=== PATIENT | female | born 1940 | race Caucasian/White ===

== ENCOUNTER 2016-11-16 22:48 | Inpatient (IN) ==
[2016-11-16] MEDS ORDERED: Aspirin 81 MG TAB.CHEW PO ONE (23:05)
--- NOTE | 2016-11-16 23:08 | Emergency Department Note ---
Disposition Clinical Impression: Bradycardia STEMI (ST elevation myocardial infarction) Qualifiers: Involved coronary artery: unspecified coronary artery Qualified Code(s): I21.3 - ST elevation (STEMI) myocardial infarction of unspecified site Hypotension Qualifiers: Hypotension type: unspecified hypotension type Qualified Code(s): I95.9 - Hypotension, unspecified Disposition: Admitted As Inpatient Condition: Serious General Adult HPI - General Chief complaint: ED Chest Pain Stated complaint: CP, possible STEMI Time Seen by Provider: 11/16/16 22:56 Source: EMS Limitations: no limitations Nursing Notes Reviewed: Yes Vital Signs Reviewed: Yes - History of Present Illness HPI Narrative: 75-year-old female with onset of chest discomfort approximately 24 hours ago. It was initially intermittent but now is constant. It is substernal and she describes it as a pressure. She has no prior cardiac history. She reports her only medical problem is hypothyroidism for which she takes Synthroid. She denies any current dyspnea. EMS did give her nitroglycerin and reports her pain went from a 7 to a 5. EKG was transmitted which was concerning for STEMI. Pain Scale: 5 Consistency: constant Improves with: nothing Worsens with: nothing Associated symptoms: Reports: denies other symptoms Treatments Prior to Arrival: none - Related Data Allergies Allergy/AdvReac Type Severity Reaction Status Date / Time meperidine [From Demerol] Allergy Vomiting Verified 11/16/16 22:59 All systems ED: reviewed and negative except as stated. Constitutional: Denies: fever Cardiovascular: Reports: chest pain Respiratory: Denies: cough Gastrointestinal: Reports: nausea. Denies: abdominal pain Musculoskeletal: Denies: back pain Integumentary: Denies: rash Endocrine: Denies: fatigue Past Medical History - Past Medical History Medical history: Reports: thyroid disease - Social History Smoking Status: Never smoker Alcohol use: Reports: none Drug use: Reports: none Physical Exam - General Limitations: no limitations General appearance: alert, in no apparent distress - Head Head exam: atraumatic - Eye Eye exam: Present: normal appearance - ENT ENT exam: normal exam - Neck Neck exam: Present: normal inspection - Respiratory Respiratory exam: Present: normal lung sounds bilaterally. Absent: respiratory distress - Cardiovascular Cardiovascular exam: Present: regular rate, normal rhythm - Abdominal Exam Abdominal exam: Present: soft, Non-Tender - Extremities Exam Extremities exam: Present: normal inspection - Neurological Exam Neurological exam: Present: alert, oriented X3 - Skin Skin exam: Present: warm, dry Course Course Narrative: EKG was transmitted and STEMI alert was called. Repeated EKG in the emergency department verified this was a STEMI with elevation in 2, [address] depression in V1 and V2. Spoke with interventionalist who recommended labor mediator. Requested ASA, plavix, and angiomax. Labwork ordered. Waiting on labor mediator team. - Reevaluation(s) Reevaluation #1: While waiting for the [employer] team blood pressure and heart rate dropped. Blood pressure was approximately 85 systolic and heart rate dropped down to low 40s. Started immediately 2 L of normal saline and placed her in Trendelenburg. Her heart rate did improve to approximately 60 and her blood pressure came up to 120. [employer] teens arrived and will take the patient [employer]. Vital Signs Temperature 97.7 F 11/16/16 22:49 Pulse Rate 73 11/16/16 22:49 Respiratory Rate 20 11/16/16 22:49 Blood Pressure 122/71 11/16/16 22:49 O2 Sat by Pulse Oximetry 98 11/16/16 22:49 Temperature 97.7 F 11/16/16 22:49 Pulse Rate 46 11/16/16 23:17 Respiratory Rate 16 11/16/16 23:28 Blood Pressure 123/67 11/16/16 23:28 O2 Sat by Pulse Oximetry 100 11/16/16 23:17 Oxygen Delivery Oxygen Delivery Nasal Cannula Medical Decision Making - Lab Data Result diagrams: 11/16/16 22:55 11/16/16 22:55 Lab Results 11/16/16 11/16/16 11/16/16 Range/Units 22:55 22:55 22:55 WBC 8.2 (4.3-11.1) K/mcL RBC 4.51 (3.82-4.97) M/mcL Hgb 13.7 (11.5-15.4) g/dL Hct 41.0 (35.3-44.9) % MCV 90.9 (83.0-100.0) fL MCH 30.4 (28.0-33.3) pg MCHC 33.4 (31.6-35.5) g/dL RDW 13.6 (11.5-14.5) % Plt Count 253 (140-400) K/mcL MPV 9.0 L (9.4-12.4) fL Immature Gran % 0.2 (0-4) % Seg Neutrophils % 62.9 % Lymphocytes % 23.3 % Monocytes % 10.2 % Eosinophils % 2.8 % Basophils % 0.6 % Neutrophils # 5.2 (1.6-8.9) K/mcL Lymphocytes # 1.9 (0.6-4.6) K/mcL Monocytes # 0.8 (0.0-1.3) K/mcL Eosinophils # 0.2 (0.0-0.6) K/mcL Basophils # 0.1 (0.0-0.2) K/mcL PT 10.7 (9.4-12.1) Seconds INR 1.0 APTT 28.2 (26.0-36.0) Seconds Sodium 141 (136-145) mEq/L Potassium 3.6 (3.5-4.5) mEq/L Chloride 105 (98-109) mEq/L Carbon Dioxide 27 (19-29) mEq/L BUN 21 H (7-20) mg/dL Creatinine 1.19 H (0.57-1.11) mg/dL Est GFR ( Amer) 54 L (> 60) Est GFR (Non-Af Amer) 44 L (> 60) BUN/Creatinine Ratio 18 (6-26) Glucose 120 H (70-99) mg/dL POC Glucose (58-89) Calculated Osmolality 296 (280-300) Calcium 9.6 (8.6-10.8) mg/dL Magnesium 2.0 (1.6-2.6) mg/dL Troponin I (0-0.03) ng/mL 11/16/16 11/16/16 Range/Units 22:55 23:03 WBC (4.3-11.1) K/mcL RBC (3.82-4.97) M/mcL Hgb (11.5-15.4) g/dL Hct (35.3-44.9) % MCV (83.0-100.0) fL MCH (28.0-33.3) pg MCHC (31.6-35.5) g/dL RDW (11.5-14.5) % Plt Count (140-400) K/mcL MPV (9.4-12.4) fL Immature Gran % (0-4) % Seg Neutrophils % % Lymphocytes % % Monocytes % % Eosinophils % % Basophils % % Neutrophils # (1.6-8.9) K/mcL Lymphocytes # (0.6-4.6) K/mcL Monocytes # (0.0-1.3) K/mcL Eosinophils # (0.0-0.6) K/mcL Basophils # (0.0-0.2) K/mcL PT (9.4-12.1) Seconds INR APTT (26.0-36.0) Seconds Sodium (136-145) mEq/L Potassium (3.5-4.5) mEq/L Chloride (98-109) mEq/L Carbon Dioxide (19-29) mEq/L BUN (7-20) mg/dL Creatinine (0.57-1.11) mg/dL Est GFR ( Amer) (> 60) Est GFR (Non-Af Amer) (> 60) BUN/Creatinine Ratio (6-26) Glucose (70-99) mg/dL POC Glucose 120 H (58-89) Calculated Osmolality (280-300) Calcium (8.6-10.8) mg/dL Magnesium (1.6-2.6) mg/dL Troponin I 0.19 H* (0-0.03) ng/mL - EKG Data EKG #1 EKG attestation: Yes I reviewed and interpreted this EKG. EKG shows normal: sinus rhythm Rate: normal ST segment elevation in: II, III, aVF ST segment depression in: v1, v2 Interpretation: acute VA Attestation Statement - Attestation Attestation: For this encounter, I have reviewed the resident, GLASS ENG[employer], or PA documentation, treatment plan, and medical decision making; and I have had face to face time with this patient. 76-year-old female brought in by EMS with concerns of possible STEMI. Patient states that she had a pressure chest pain in the right sternum that radiated around the right arm that was associated with diaphoresis and nausea intermittently throughout the day. Transmitted ECG shows ST elevations in II, III, and F aVF with a ST depression in lead V2. EMS gave him nitroglycerin and nitro paste prior to arrival, the patient's blood pressure did remain stable. Catheter lab and the informatics spec were contacted immediately after receiving the transmitted ECG. Patient given aspirin in the emergency department as well as Plavix and Angiomax per the informatics spec. Patient's heart rate dropped below 50 at one point during her evaluation prior to transferring to [employer], patient became symptomatic with lightheadedness and her BP dropped below 90 systolic. Patient was placed in Trendelenburg position and IV fluids were started which elevated her blood pressure back above 100. Patient was transferred to the [facility] without further incident.
[2016-11-16 23:09] LABS: Basophils # 0.1 K/mcL (0.0-0.2); Basophils % 0.6 %; Eosinophils # 0.2 K/mcL (0.0-0.6); Eosinophils % 2.8 %; Hemoglobin 13.7 g/dL (11.5-15.4); Immature Granulocytes % 0.2 % (0-4); Lymphocytes # 1.9 K/mcL (0.6-4.6); Lymphocytes % 23.3 %; Mean Corpuscular HGB Conc 33.4 g/dL (31.6-35.5); Mean Corpuscular Hemoglobin 30.4 pg (28.0-33.3); Mean Corpuscular Volume 90.9 fL (83.0-100.0); Monocytes # 0.8 K/mcL (0.0-1.3); Monocytes % 10.2 %; Neutrophils # 5.2 K/mcL (1.6-8.9); Platelet Count 253 K/mcL (140-400); Red Blood Count 4.51 M/mcL (3.82-4.97); Red Cell Distribution Width 13.6 % (11.5-14.5); Segmented Neutrophils % 62.9 %
[2016-11-16] MEDS ORDERED: *HR* Midazolam HCl 2 MG/2 ML VIAL ONE (23:13)
[2016-11-16] MEDS ORDERED: Nitroglycerin 1,000 MCG/10 ML VIAL IV ONE (23:14)
[2016-11-16] MEDS ORDERED: *HR* Heparin 10,000 UNIT/10 ML VIAL ONE (23:14)
[2016-11-16] MEDS ORDERED: *HR* FentaNYL (PF) 100 MCG/2 ML VIAL ONE (23:14)
[2016-11-16] MEDS ORDERED: Heparin 1,000 UNITS/500 mL NS 500 ML ONE (23:14)
[2016-11-16] MEDS ORDERED: 0.9 % Sodium Chloride 1,000 ML ONE (23:14)
--- NOTE | 2016-11-16 23:14 | Pre-Sedation Evaluation ---
Pre-sedation evaluation - Pre-sedation checklist Date of procedure: 11/16/16 Procedure: [facility] Recent Vitals: Last Vital Signs Temp 97.7 F 11/16/16 22:49 Pulse 73 11/16/16 22:49 Resp 20 11/16/16 22:49 BP 122/71 11/16/16 22:49 Pulse Ox 98 11/16/16 23:01 H&P (including ROS) documented in medical record: Yes Previous reaction to sedatives/anesthetics: No Dietary Status: No solid food in preceding 4 hrs and no liquid in preceding 2 hrs Airway Assessment: Patient can open mouth completely, TMJ function normal Dentition: No loose teeth or bridges Possible difficult airway: No ASA Classification *see protocol: CLASS III-Severe systemic disease Plan of Care: Pt appropriate candidate for procedure/moderate/conscious sedation , Risks/benefits of procedure/sedation discussed w/ patient/family, If not NPO; Risk of intake outweiged by necessity to perform procedure
[2016-11-16] MEDS ORDERED: SODIUM CHLORIDE 0.9% IVC SCH (23:15)
[2016-11-16] MEDS ORDERED: BIVALIRUDIN IVC SCH (23:15)
[2016-11-16 23:16] LABS: Prothrombin Time 10.7 Seconds (9.4-12.1)
[2016-11-16] MEDS ORDERED: 0.9 % Sodium Chloride 2,000 ML ONE (23:17)
--- NOTE | 2016-11-16 23:17 | Cardiology History & Physical ---
Date of Encounter: 11/16/16 Time of Encounter: 23:15 Assessment and Plan (1) ST elevation (STEMI) myocardial infarction involving right coronary artery Current Visit: Yes Status: Acute Patient presented with chest pain and EKG showed some ST elevations in inferior the leads. She is in the lab for Catheterization and possible primary intervention. Risks benefits and alternatives palpation all questions answered she agrees to proceed. We will institute routine post-OH care including aspirin and beta blockers Josh inhibitors and statin. We will check an echocardiogram. She will be referred for cardiac rehabilitation. The assessment and plan as outlined above was discussed with the patient and/or family members who expressed understanding and agreement. All questions were answered. History of Present Illness Chief complaint: Chest pain HPI: Ms. Westbrook is a 75 year old female with no prior cardiac history, history of hypothyroidism who presents with chest pain that started 24 hours ago. The chest pain is substernal. Initially intermittent. Now persistent. EKG showed ST elevations in the inferior precordial leads. She received aspirin Plavix and she is in the catheter lab for angiography and possible primary intervention. She denies history of smoking Past Med Surg Social Fam HX - Past Medical History Medical history: thyroid disease - Past Surgical History Surgical History: no surgical history - Social History Smoking Status: Never smoker Alcohol use: none Drug use: none Medications and Allergies Allergies meperidine [From Demerol] Allergy (Verified 11/16/16 22:59) Vomiting All Systems Review: A 10-system review of systems was performed and is negative for pertinent findings except as documented above in the HPI. Physical Examination Vital Signs, Last 4 Hours Temp Pulse Resp BP Pulse Ox 11/16/16 23:01 98 11/16/16 22:49 97.7 F 73 20 122/71 98 General: Conversant, No Apparent Distress HEENT: Atraumatic, Normocephaly, Mucus Membranes Moist Neck: No JVD, Normal carotid pulses Cardiac: Reg Rate and Rhythm, Normal S1 and S2, No Murmur Lungs: Normal Breath Sounds, No Wheeze, Rales, Rhonchi Neuro: Alert and responsive, No focal deficits noted Abdomen: Soft, Non-Tender Skin: No rashes noted on visualized skin Musculoskeletal: No Chest Wall Tenderness Extremities: No Clubbing, No Cyanosis, No Edema, Normal Pulses Results 11/16/16 22:55 11/16/16 22:55 Lab Results 11/16/16 22:55 WBC 8.2 Hgb 13.7 Hct 41.0 Plt Count 253 - EKG Interpretation EKG results cardiology: personally reviewed (Normal sinus rhythm and ST elevations in 2-[address] depressions in V1 and V2 and elevation in V5 V6 suggestive of acute inferoposterolateral myocardial infarction)
[2016-11-16 23:18] LABS: Activated Partial Thrombo Time 28.2 Seconds (26.0-36.0)
[2016-11-16 23:23] LABS: Calcium 9.6 mg/dL (8.6-10.8); Potassium 3.6 mEq/L (3.5-4.5)
[2016-11-16] MEDS ORDERED: Ondansetron 4 MG/2 ML VIAL ONE (23:38)
[2016-11-16] MEDS ORDERED: Furosemide 40 MG/4 ML VIAL ONE (23:52)
[2016-11-17] MEDS ORDERED: 0.9 % Sodium Chloride 1,000 ML IVC SCH ×2 (00:15→12:44)
[2016-11-17] MEDS ORDERED: *HR* Atropine Sulfate 1 MG/10 ML SYRINGE ONE (00:22)
[2016-11-17 04:08] LABS: Basophils % 0.4 %; Eosinophils % 0.4 %; Hematocrit 41.6 % (35.3-44.9); Hemoglobin 13.9 g/dL (11.5-15.4); Immature Granulocytes % 0.2 % (0-4); Lymphocytes % 11.5 %; Mean Corpuscular HGB Conc 33.4 g/dL (31.6-35.5); Mean Corpuscular Hemoglobin 30.3 pg (28.0-33.3); Mean Corpuscular Volume 90.8 fL (83.0-100.0); Mean Platelet Volume 9.3 fL (9.4-12.4); Monocytes # 0.6 K/mcL (0.0-1.3); Monocytes % 6.8 %; Neutrophils # 6.9 K/mcL (1.6-8.9); Platelet Count 260 K/mcL (140-400); Red Blood Count 4.58 M/mcL (3.82-4.97); Red Cell Distribution Width 13.7 % (11.5-14.5); Segmented Neutrophils % 80.7 %
[2016-11-17 04:19] LABS: BUN/Creatinine Ratio 19 (6-26); Blood Urea Nitrogen 19 mg/dL (7-20); Carbon Dioxide 26 mEq/L (19-29); Chloride 102 mEq/L (98-109); Glucose 114 mg/dL (70-99); Osmolality,Calculated 291 (280-300); Potassium 4.1 mEq/L (3.5-4.5); Sodium 139 mEq/L (136-145); eGFR For African Americans > 60 (> 60); eGFR For Non-African Americans 54 (> 60)
[2016-11-17] MEDS ORDERED: Aspirin 81 MG TAB.CHEW PO SCH (09:00)
--- NOTE | 2016-11-17 09:13 | Cardiology Progress Note ---
Date of Encounter: 11/17/16 Time of Encounter: 09:11 Assessment and Plan (1) Bradycardia Current Visit: Yes Status: Acute Resolved - probably related to RCA stenosis (2) Hypotension Current Visit: Yes Status: Acute Resolved - also probably related to RCA stenosis and associated hemodynamic compromise Qualifiers: Hypotension type: unspecified hypotension type Qualified Code(s): I95.9 - Hypotension, unspecified (3) STEMI (ST elevation myocardial infarction) Current Visit: Yes Status: Acute S/p RCA PCI. Staged proceure to LCX. Usual CAD meds, STEMI care Qualifiers: Involved coronary artery: right coronary artery Qualified Code(s): I21.11 - ST elevation (STEMI) myocardial infarction involving right coronary artery Discussion w patient/family: The assessment and plan as outlined above was discussed with the patient and/or family members who expressed understanding and agreement. All questions were answered. Thank you for involving us in the care of your patient. Please call with any questions. Subjective Principal diagnosis: CAD Interval history: Patient denies any chest pain this morning. Denies any new sxs and is feeling much better than last night. Objective Vital Signs, Last 4 Hours Temp Pulse Resp BP Pulse Ox 11/17/16 07:56 98.0 F 11/17/16 07:54 70 13 143/63 95 11/17/16 06:00 66 13 128/58 95 11/17/16 05:15 71 13 128/56 95 General: Conversant, No Apparent Distress HEENT: Atraumatic, Normocephaly Neck: No JVD, Normal carotid pulses Cardiac: Reg Rate and Rhythm, Normal S1 and S2 Lungs: Normal Breath Sounds, No Wheeze, Rales, Rhonchi Neuro: Alert and responsive, No focal deficits noted Abdomen: Soft, Non-Tender Skin: No rashes noted on visualized skin Musculoskeletal: No Chest Wall Tenderness Extremities: No Clubbing, No Edema Results 11/17/16 03:53 11/17/16 03:53 Lab Results 11/17/16 11/17/16 03:53 03:53 WBC 8.6 Hgb 13.9 Hct 41.6 Plt Count 260 Sodium 139 Potassium 4.1 Chloride 102 Carbon Dioxide 26 BUN 19 Creatinine 1.00 Glucose 114 H Calcium 10.0 - Imaging and Cardiology Chest Xray: report reviewed Cardiac cath: image reviewed (Severe RCA stenosis - Stent placed Severe LCX stenosis - not yet treated Moderate LAD territory disease - med Rx, additional imgaing when LCX is treated.) - EKG Interpretation EKG results cardiology: personally reviewed, normal ECG, no diagnostic ischemia (ST changes in the inferolateral leads resolved overnight. AM EKG - normal STs ) - VTE Reasons for not Prescribing Prophylaxis: Not indicated-Anticoagulated or INR therapeutic Consult Discharge Plan - Plan Referrals: NO,PCP [Primary Care Provider] -
[2016-11-17] MEDS ORDERED: *HR* Midazolam HCl 2 MG/2 ML VIAL ONE (09:45)
[2016-11-17] MEDS ORDERED: *HR* FentaNYL (PF) 100 MCG/2 ML VIAL ONE (09:45)
[2016-11-17] MEDS ORDERED: *HR* Heparin 10,000 UNIT/10 ML VIAL ONE (09:45)
[2016-11-17] MEDS ORDERED: Heparin 1,000 UNITS/500 mL NS 500 ML ONE (09:45)
[2016-11-17] MEDS ORDERED: 0.9 % Sodium Chloride 1,000 ML ONE ×2 (09:45→10:33)
[2016-11-17] MEDS ORDERED: Nitroglycerin 1,000 MCG/10 ML VIAL IV ONE (09:46)
--- NOTE | 2016-11-17 10:28 | Pre-Sedation Evaluation ---
Pre-sedation evaluation - Pre-sedation checklist Date of procedure: 11/17/16 Procedure: cath Recent Vitals: Last Vital Signs Temp 98.0 F 11/17/16 07:56 Pulse 61 11/17/16 09:00 Resp 13 11/17/16 09:00 BP 150/79 11/17/16 09:00 Pulse Ox 95 11/17/16 09:00 H&P (including ROS) documented in medical record: Yes Previous reaction to sedatives/anesthetics: No Dietary Status: NPO 6 hours prior to procedure Dentition: No loose teeth or bridges Possible difficult airway: No ASA Classification *see protocol: CLASS II-Mild systemic disease Plan of Care: Pt appropriate candidate for procedure/moderate/conscious sedation , Risks/benefits of procedure/sedation discussed w/ patient/family, If not NPO; Risk of intake outweiged by necessity to perform procedure
[2016-11-17] MEDS ORDERED: *HR* Bivalirudin 250 MG VIAL IVC ONE (10:33)
--- NOTE | 2016-11-17 11:03 | Invasive Diagnostic Lab ---
Name: Niecy Westbrook Date of Study: 11/16/2016 Date: 1940 Ht: 168.0 cm /66.1 in Medical Record#: [id number] Age: 75 Wt: 77. kg / 169.76 lb Account/Order#: [id number] Gender: Female BSA: 1.87 Order #: [id number] Fluoro Dose: 467 mGy BMI: 27.28 Procedure Physician: Magdaleno Manuel MD Referring MD: Referring MD: Procedures Performed: PCI of Acute OH LEFT HEART CATH Indications: STEMI Impressions: There is severe one vessel coronary artery disease. The left ventricle is normal and has normal contractility EF 50% Patient had successful PTCA/Drug-Eluting Stent placement in the Proximal RCA. Patient will return to lab tomorrow for Mid Circ stent Recommendations: Optimal medical therapy of patient's disease. Aggressive risk factor modification. Patient being referred for cardiac rehab. Patient recommended to retrun to cathlab tomorrow for PCI of Mid Circ. History/Risk Factors: Thyroid Procedure Access obtained in the right Femoral artery by percutaneous puncture Access obtained in the right Femoral vein. Patient had successful PTCA/Drug-Eluting Stent placement in the proximal RCA. Complications: None Contrast: Isovue 146ml Closure Device: Perclose ProGlide, venous sheath in place Hemodynamics: Pressures Site Systolic/ A Wave Diastolic/ V Wave End Diastolic/ Mean HR AO 139 82 108 83 LV 130 0 16 88 LV 112 41 46 89 AO 113 39 80 87 LV Ventriculography Ejection Method: LV Gram Ejection Fraction: 50% Wall Motion: NIETO Anterobasal Normal Anterolateral Normal Apical: Normal Inferoapical Severe Hypokinesis Inferobasal Severe Hypokinesis Coronary Dominance: right Lesion Findings/Interventions * Left Main Coronary Artery The LMCA is angiographically free of disease. * Left Anterior Descending There is a 40% stenosis in the Proximal LAD. There is a 20% stenosis in the Mid LAD. There is a 60% stenosis in the 1st Diagonal. * Circumflex There is a 95% stenosis in the Mid Circumflex. * Ramus The Ramus is angiographically free of disease. * Right Coronary Artery There is a 12 mm long, 99% stenosis in the Proximal RCA. The lesion has a DOUGLAS flow of 3. An intervention was performed on the Proximal RCA with a final stenosis of 0%. There were no lesion complications. The final DOUGLAS flow was 3. There is a 30% stenosis in the Mid RCA. There is a 30% stenosis in the Distal RCA. Interventional Device(s) Vessel Segment Type Name Diameter (mm) Length (mm) Proximal RCA Balloon Mini-Trek Rx 2 8 Proximal RCA Drug Eluting Stent Synergy 3 12 Updated by Mag Mireles RN on 11/17/2016 12:46:23 AM Magdaleno Manuel MD electronically signed on 11/17/2016 10:57:59 AM with status of Final
--- NOTE | 2016-11-17 11:10 | Invasive Diagnostic Lab ---
Name: Niecy Westbrook Date of Study: 11/17/2016 Date: 1940 Ht: 168.0 cm /66.1 in Medical Record#: [id number] Age: 76 Wt: 77. kg / 169.76 lb Account/Order#: [id number] Gender: Female BSA: 1.87 Order #: [id number] Fluoro Dose: 882 mGy BMI: 27.28 Procedure Physician: Magdaleno Manuel MD Referring MD: Referring MD: Procedures Performed: Stent w/ PTCA Single Major Vessel Indications: Coronary Artery Disease, STagged PCI Impressions: There is severe one vessel coronary artery disease. Patient had successful PTCA/Drug-Eluting Stent placement in the mid Circ. Recommendations: Optimal medical therapy of patient's disease. Aggressive risk factor modification. History/Risk Factors: thyroid RCA stent Previous PCI Procedure Access obtained in the left Femoral artery by percutaneous puncture Patient had successful PTCA/Drug-Eluting Stent placement in the mid Circ. Complications: None, None Contrast: Isovue 77ml Closure Device: Perclose ProGlide Hemodynamics: Pressures Site Systolic/ A Wave Diastolic/ V Wave End Diastolic/ Mean HR AO 101 47 68 64 AO 124 62 87 68 Coronary Dominance: right Lesion Findings/Interventions * Circumflex There is a 20 mm long, 95% stenosis in the Mid Circumflex. An intervention was performed on the Mid Circumflex with a final stenosis of 0%. There were no lesion complications. See Previous cath from 11/16/2016. Interventional Device(s) Vessel Segment Type Name Diameter (mm) Length (mm) Mid Circumflex balloon Emerge Monorail 2 Mid Circumflex bioabsorbable stent Synergy 2.5 20 Mid Circumflex balloon NC Emerge 2.75 15 Updated by Guerline Hillman RN on 11/17/2016 11:06:21 AM Magdaleno Manuel MD electronically signed on 11/17/2016 11:07:12 AM with status of Final
--- NOTE | 2016-11-17 11:17 | Invasive Diagnostic Lab Proc ---
Name: Niecy Westbrook Date of Study: 11/17/2016 Date: 1940 Ht: 66.1in Medical Record#: [id number] Age: 76 Wt: 169.76lb Gender: Female BSA: 1.87 Order #: [id number] BMI: 27.28 Physicians Procedure Physician: Magdaleno Manuel MD Referring MD: Referring MD: Staff Name Position Time In Saida Arias RT Monitor 10:24 AM Bowen Kyara RT (R) Scrub 10:24 AM Guerline Dominguez RN Monitor 10:25 AM Indications Indication Coronary Artery Disease STagged PCI Procedures Performed Procedure PRQ CARD LENIN STENT W/ANGIO 1 VSL Pre-Procedure Checklist Informed consent is complete signed and on chart. H\\T\\P is on chart. ID band is on and ID verified with patient. Patient NPO for procedure The procedure was described for the patient and questions were answered. Blood Pressure: 144/65 ECG is on chart. Rhythm: NSR Plan of Care Patient will tolerate the procedure without complications. Adequate level of comfort will be maintained. Hemodynamics will remain stable Patient will recover from procedure without complications. Respiratory function will be maintained. Cardiac rhythm will remain stable. Patient temperature will be maintained. Patient and/or family have verbalized understanding of the procedure. Patient Education Chief Complaint/Reason for Test: Cardiac Cath Developmental Category: Geriatric (65+ years) Developmentally Appropriate for Age: Yes Learning Barriers: None Education Needs: Procedure Education Method: Verbal Information Taught: Cardiac Cath Educational Evaluation: Able to repeat information Intravenous Access Time IV Size Location DC'd Fluid/Drip Rate Units RN 10:03 AM 20g 1 1/4" Patent On Arrival Lt Hand 0.9NaCl 75 ml/hr Guerline Dominguez RN 10:03 AM 18g 1 1/4" Patent On Arrival Rt Antecubital Allergies meperidine Vital Signs Time BP (mmHg) HR (bpm) O2 Sat. RR (bpm) LOC 10:27 AM / % 5 = Fully awake and oriented or at pre-proc level 10:27 AM / % 4 = Oriented but drowsy 10:30 AM 144 / 65 63 98 % 18 10:35 AM 133 / 64 67 96 % 14 10:40 AM 121 / 65 64 93 % 8 10:45 AM 133 / 69 64 94 % 11 10:50 AM 125 / 56 67 94 % 16 Procedural Medications Time Medication Dose Units Method Given By 10:26 AM Oxygen 2 L/min nasal cannula Guerline Dominguez RN 10:26 AM Versed 1 mg Intravenous Guerline Dominguez RN 10:26 AM Fentanyl 50 mcg Intravenous Guerline Dominguez RN 10:32 AM Lidocaine 2% 18 ml Subcutaneous Magdaleno Manuel MD 10:36 AM Nitroglycerin 200 mcg Intracoronary Magdaleno Manuel MD 10:36 AM Angiomax 0.75mg/kg bolus: 11 mg Intravenous Guerline Dominguez RN 10:39 AM Angiomax 1.75mg/kg/hr: 26 ml Intravenous Guerline Dominguez RN 10:46 AM Nitroglycerin 200 mcg Intracoronary Magdaleno Manuel MD ASA Classification: CLASS II- Mild systemic disease (i.e. well-controlled diabetes, hypertension, asthma, cigarette smoking) Pearl Score Preprocedure Postprocedure Activity 2- Moves 4 extremities sustained head lift Activity 2- Moves 4 extremities sustained head lift Circulation 2- SBP +/= 20 points of pre-anesthetic level Circulation 2- SBP +/= 20 points of pre-anesthetic level Consciousness 2- Awake and alert oriented x 3 Consciousness 2- Awake and alert oriented x 3 O2 Saturation 2- Able to maintain O2 satruation of 92% on room air O2 Saturation 2- Able to maintain O2 satruation of 92% on room air Respiratory 2- Able to deep breathe and cough well Respiratory 2- Able to deep breathe and cough well Total Score 10 Total Score 10 Contrast Agent: Isovue Diagnostic Contrast: 77 ml Total Contrast: 77 ml Fluoro Dose: 882 mGy Procedure Log Time Note Enter By 10:16 AM Pt arrived to medical laboratory technical officer 2 at 10:16 scoates 10:24 AM Saida Arias RT Position: Monitor Time in: 10:24 scoates 10:25 AM Kyara Wiseman RT (R) Position: Scrub Time in: 10:24 scoates 10:25 AM Guerline Dominguez RN Position: Monitor Time in: 10:25 scoates 10:25 AM Patient charges- Angio tray pack, Navilyst 3mm J, Pulse Oximetry and ACIST tubing and transducer scoates 10:25 AM IV Supplies used: J loop Angio Cath. scoates 10:25 AM Case Delayed No scoates 10: AM Hair removed from procedure site in procedure lab using clippers. Bilateral groin prepped with Chloraprep by Saida Arias then patient draped. Skin intact. scoates 10: AM Physician arrived 10: scoates 10: AM ASA Class CLASS II- Mild systemic disease (i.e. well-controlled diabetes, hypertension, asthma, cigarette smoking) scoates 10: AM Meet and greet completed scoates : AM Sign in performed according to hospital policy. scoates 10: AM Procedure start : scoates : AM Time: Oxygen on at 2 L/min per nasal cannula by Guerline Dominguez RN scoates AM Time: Versed 1 mg Intravenous Given by Guerline Dominguez RN scoates AM Time: Fentanyl 50 mcg Intravenous Given by Guerline Dominguez RN scoates AM Time: Patient comfortable and pain free: Yes scoates : AM Time: LOC: 5 = Fully awake and oriented or at pre-proc level scoates 10: AM CathStat : AM Vitals capture started with the following parameters, Patient=Adult, Interval=5 min, Initial Ptvapref=381 mmHg, Deflation Rate=5 mmHg, Cuff placed on Left Leg 10:30 AM HR=63 bpm, AHRX=709/65 mmhg, SpO2=98.0 %, Resp=18 B/min, Comment=sr 10: AM Time out performed according to hospital policy scoates : AM Time: 18 ml Lidocaine 2% to left groin Subcutaneous Given by Magdaleno Manuel MD scoates 10:33 AM Access obtained by percutaneous puncture. 6Fr 10cm Terumo [place] sheath placed in left Femoral artery. [id number] scoates 10:34 AM Pressure channel 1 zeroed. 10:35 AM 6Fr XB3.5 Mobile Bright-Tip guide catheter was used to cannulate the PCI vessel successfully. reused? No scoates 10:35 AM wire removed scoates 10:35 AM HR=67 bpm, YVBY=782/64 mmhg, SpO2=96.0 %, Resp=14 B/min, Comment=sr 10:35 AM Inflation device was opened. scoates 10:36 AM Time: 10:36 Nitroglycerin 200 mcg Intracoronary Given by Magdaleno Manuel MD scoates 10:36 AM Recorded Pressure: Ao, HR=64, Condition=Condition 1 (Aorta) Ao 101/47/68 10:37 AM Time: 10:36 Angiomax 0.75mg/kg bolus: 11 ml Intravenous Given by Guerline Dominguez RN Moore pump scoates 10:39 AM Time: 10:39 Angiomax 1.75mg/kg/hr: 26 ml Intravenous Given by Guerline Dominguez RN Moore pump scoates 10:40 AM HR=64 bpm, ITFP=354/65 mmhg, SpO2=93.0 %, Resp=8 B/min 10:40 AM .014 Prowater 180cm guide wire across target lesion- successful. reused? No scoates 10:42 AM 2.0 mm x mm Emerge Monorail balloon across target lesion- successful. reused? No scoates 10:42 AM Time: 10:27 Patient comfortable and pain free: Yes scoates 10:43 AM Time: 10:27LOC: 4 = Oriented but drowsy scoates 10:43 AM Balloon inflated @ 8 roque for 12 seconds scoates 10:43 AM Balloon catheter removed intact. scoates 10:44 AM 2.5mm x 20mm Synergy bioabsorbable stent across target lesion- successful Lot #[id number] scoates 10:45 AM HR=64 bpm, OAAJ=362/69 mmhg, SpO2=94.0 %, Resp=11 B/min 10:45 AM Stent deployed @ 18 roque for 7 seconds scoates 10:46 AM Time: 10:46 Nitroglycerin 200 mcg Intracoronary Given by Magdaleno Manuel MD scoates 10:47 AM 2.75 mm x 15mm NC Emerge balloon across target lesion- successful. reused? No scoates 10:48 AM Balloon inflated @ 16 roque for 6 seconds scoates 10:48 AM balloon and wire removed scoates 10:48 AM Recorded Pressure: Ao, HR=68, Condition=Condition 1 (Aorta) Ao 124/62/87 10:49 AM Bolus angiogram of left Femoral complete: 4 ml/sec for a total of 7 mls scoates 10:49 AM catheter removed scoates 10:50 AM HR=67 bpm, XFRR=525/56 mmhg, SpO2=94.0 %, Resp=16 B/min 10:50 AM Procedure completed at 10:50 scoates 10:52 AM Sign out completed: Radiation Dose 882 mGy Fluoro Time: 6.6 Isovue 370 - 200ml contrast 77 ml given by Magdaleno Manuel MD. Complications: NoneCardiac Rehab Consult needed: YesConfirmed administered medications: Yes scoates 10:52 AM Isovue 370 - 200ml,1 Bottle(s) used. scoates 10:52 AM Arterial sheath pulled, Perclose closure device used and was Successful [id number] S/N. scoates 10:52 AM Post ECG NSR scoates 10:52 AM Post Blood Pressure 125/56 scoates 10:53 AM Information taught PCI and Perlose scoates 10:53 AM Education needs Procedure, Plan of Care, and Responsibilities of Patient in Care scoates 10:53 AM Learning barriers :None scoates 10:53 AM Education Methods Verbal scoates 10:53 AM Education evaluation Able to repeat information scoates 10:53 AM Site status No bleeding/hematoma - Lt Groin as reported by Kyara Wiseman RT (R) at 10:53 scoates 10:53 AM Opsite applied scoates 10:54 AM Plavix, Effient or Brilinta given No Plavis 75mg given in ICU at 940 scoates 10:54 AM Delay to floor No scoates 10:54 AM Patient out of room: 10:54 scoates 10:54 AM Family placed in consult room. scoates 10:56 AM Complications: None scoates 10:56 AM Fluoro Time: 6.6 scoates 10:56 AM Isovue 370 - 200ml contrast 77 ml given by Magdaleno Manuel MD. scoates 10:56 AM Radiation Dose 882.09 mGy scoates 11:01 AM Coronary Dominance: right scoates 11:01 AM Lesion found in Mid Circumflex. Pre Stenosis: 95 Pre DOUGLAS Flow: scoates 11:01 AM Circumflex, Obtuse Marginal, Left Posterior Descending, and Left Posterolateral Coronary Arteries with 95 % stenosis. If graft is supplying this area, % stenosis scoates 11:01 AM 11:01 Post Pulses Lt DP PT 1+ scoates 11:01 AM 11:01 Post Pulses Rt DP PT 2+ scoates 11:10 AM Report given to [place] JACOBS Pt taken to ICU Room #11. 11:10 scoates Complications Complication None None Hemodynamics Pressures Site Systolic/A Wave Diastolic/V Wave Mean AO 101 47 68 AO 124 62 87 Post Procedure Information Blood Pressure: 125/56 mmHg Rhythm: NSR Post procedural instructions were given Closure Device Time Device Success/Fail 11/17/2016 11:00:00 AM Perclose ProGlide Successful Site Checks Time Location Status Staff Sheath In? Note 10:53 AM Lt Groin No bleeding/hematoma Salbador Wiseman RT (R) Pulses Time Site Pre-Procedure Post-Procedure Note 11:01:00 AM Lt DP PT 1+ 11:01:00 AM Rt DP PT 2+ Updated by Guerline Hillman RN on 11/17/2016 11:10:48 AM electronically signed on 11/17/2016 11:12:07 AM with status of Final
--- NOTE | 2016-11-17 14:45 | Electrocardiograph Report ---
[address] [place] [address] Test Date: 2016-11-16 Pat Name: Niecy Westbrook Department: 103 Room: 11 Gender: F Hydrological Technical Officer: : 1940 Requested By: Thony Dixon Order Number: [id number] Reading MD: Courtney Gary Measurements Intervals [place] Rate: 57 P: 30 SD: 151 QRS: 2 QRSD: 89 T: 115 QT: 397 QTc: 391 Interpretive Statements SINUS BRADYCARDIA INFERIOR POSTERIOR ACUTE MYOCARDIAL INFARCTION RECIPROCAL HIGH LATERAL DEPRESSIONS Electronically Signed On 11-17-2016 14:43:41 EST by Courtney Gary
--- NOTE | 2016-11-17 14:47 | Electrocardiograph Report ---
[address] [place] [address] Test Date: 2016-11-17 Pat Name: Niecy Westbrook Department: 109 Room: 11 Gender: F Senior Consumer Insights Consultant: : 1940 Requested By: Magdaleno Manuel Order Number: [id number] Reading MD: Courtney Gary Measurements Intervals [place] Rate: 78 P: 59 [place]: 158 QRS: 12 QRSD: 89 T: 81 QT: 359 QTc: 393 Interpretive Statements SINUS RHYTHM NONSPECIFIC T-WAVE ABNORMALITY Electronically Signed On 11-17-2016 14:45:56 EST by Courtney Gary
--- NOTE | 2016-11-17 14:47 | Electrocardiograph Report ---
[address] [place], [place] [address] Test Date: 2016-11-16 Pat Name: Niecy Westbrook Department: 103 Room: 11 Gender: F Machine Shorthand Reporter: : 1940 Requested By: Order Number: [id number] Reading MD: Courtney Gary Measurements Intervals [place] Rate: 45 P: 10 HI: 148 QRS: 16 QRSD: 89 T: 104 QT: 463 QTc: 419 Interpretive Statements SINUS BRADYCARDIA WITH SINUS ARRHYTHMIA ST ELEVATION INFERIOR-POSTERIOR, CONSIDER ACUTE NH Electronically Signed On 11-17-2016 14:45:14 EST by Courtney Gary
[2016-11-18 07:35] VITALS: BP 118/58
[2016-11-18] MEDS ORDERED: Aspirin 81 MG TAB.CHEW PO SCH (09:00)
[2016-11-18 09:39] LABS: Basophils % 0.5 %; Eosinophils # 0.2 K/mcL (0.0-0.6); Eosinophils % 2.8 %; Hematocrit 40.7 % (35.3-44.9); Hemoglobin 13.2 g/dL (11.5-15.4); Immature Granulocytes % 0.4 % (0-4); Lymphocytes # 1.3 K/mcL (0.6-4.6); Lymphocytes % 16.2 %; Mean Corpuscular HGB Conc 32.4 g/dL (31.6-35.5); Mean Corpuscular Hemoglobin 30.1 pg (28.0-33.3); Mean Corpuscular Volume 92.9 fL (83.0-100.0); Mean Platelet Volume 9.5 fL (9.4-12.4); Monocytes # 0.6 K/mcL (0.0-1.3); Monocytes % 6.9 %; Platelet Count 238 K/mcL (140-400); Red Blood Count 4.38 M/mcL (3.82-4.97); Red Cell Distribution Width 14.1 % (11.5-14.5); Segmented Neutrophils % 73.2 %
--- NOTE | 2016-11-18 09:43 | ECHO - Doppler Report ---
Echocardiogram Name: Niecy Westbrook Date of Study: 11/17/2016 Date: 1940 Ht: 66.0 in Medical Record#: [id number] Age: 76 Wt: 170.0 lb Gender: Female BSA: 1.87 Order #: [id number] Location: [facility] Room #: 11 Reading Physician: Anish Babcock DO, TJ, GERONIMO GANNON Recreation Program Coordinator: Aspen Benavidez Ordering Physician: Magdaleno Manuel MD Primary Physician: Milan Franco MD Indications: ACS Impressions: LVEF 55-60%. Normal LV chamber size, wall thickness and function. Mild left ventricular diastolic dysfunction. Normal right ventricular structure and function. Moderately dilated left atrium. Mild mitral regurgitation. No evidence of pulmonary hypertension. Left Ventricular Wall Motion: Rest Echo Findings All wall segments showed normal motion. Findings: Study Quality * Technically adequate exam. ECG Findings * Normal sinus rhythm. Left Ventricle * LVEF 55-60%. * Normal LV chamber size, wall thickness and function. * Mild left ventricular diastolic dysfunction. Right Ventricle * Normal right ventricular structure and function. Left Atrium * Moderately dilated left atrium. Right Atrium * Mildly dilated right atrium. Interatrial Septum * No evidence of PFO by color Doppler. Aortic Valve * Trileaflet aortic valve. * Mildly sclerotic aortic valve leaflets. * No aortic regurgitation. * No aortic stenosis. Mitral Valve * Mildly thickened mitral valve leaflets. * Mild mitral regurgitation. * No mitral stenosis. Tricuspid Valve * Normal tricuspid valve structure and function. * Trace tricuspid regurgitation. * No evidence of pulmonary hypertension. Pulmonic Valve * Normal pulmonic valve structure and function. * No pulmonic regurgitation. Aorta * Normally sized aortic root. Pericardium * The pericardium appears normal. IVC * The IVC is not dilated. * Response to Valsalva not well appreciated. Pulmonary Artery * Normal visualized portions of the main pulmonary artery. History Hypercholesteremia Family History of CAD History of CAD/PTCA Myocardial Infarction Measurements: BP: 150/ 79 2D Normal Values RVIDd: 3.50 cm <2.7 cm IVSd: 1.00 cm 0.6 - 1.0 cm LVIDd: 4.30 cm 3.7 - 5.6 cm LVPWd: 1.00 cm 0.6 - 1.1 cm LVIDs: 2.60 cm 1.5 - 3.6 cm AO: 2.70 cm < 4.0 cm LA: 4.10 cm 2.0 - 4.0cm %FS: 39.50 cm >25 % LA volume: 66 Mitral Valve Peak E:.71 m/sec Peak A:.85 m/sec E/A Ratio:0.8 Peak E' Lat Alan:9.55 cm/s Peak E' Med Alan:5.75 cm/s E/E' Lat Ratio:7.4 E/E' Med Ratio:12.4 Tricuspid Valve TV Regurg Peak Grad: 6.00mmHg TV Regurg Peak Alan: 1.19m/sec Updated by Anish Babcock DO, FACBhaskar, TERESSA, GERONIMO on 11/18/2016 9:35:02 AM electronically signed on 11/18/2016 9:35:34 AM with status of Final Wall Motion Veronica: 1=Normal, 2=Hypokinesis, 3=Akinesis, 4=Dyskinesis, 5=Aneurysmal, 6=Hyperkinetic, X=Not Visualized (Blank)=Missing
[2016-11-18 09:44] LABS: BUN/Creatinine Ratio 24 (6-26); Blood Urea Nitrogen 19 mg/dL (7-20); Carbon Dioxide 26 mEq/L (19-29); Chloride 106 mEq/L (98-109); Glucose 124 mg/dL (70-99); Osmolality,Calculated 294 (280-300); Sodium 140 mEq/L (136-145); eGFR For African Americans > 60 (> 60); eGFR For Non-African Americans > 60 (> 60)
--- NOTE | 2016-11-18 10:09 | Discharge Summary ---
Date of Encounter: 11/18/16 Time of Encounter: 10:07 - Discharge Diagnosis (1) ST elevation (STEMI) myocardial infarction involving right coronary artery Priority: Primary Status: Acute Comments: Presented as inferior STEMI 11/16/16, troponin 0.19. LHC on 11/16 showed severe 1 vessel CAD, EF 50%. Pt had successful PTCA/LENIN to proximal RCA. 11/17 she had staged PCI of mid circ--successful PTCA/LENIN. Pt denies any chest pain or dyspnea overnight. Labs and vitals stable. DAPT (ASA and Plavix) uninterrupted x 1 year. Pt verbalizes understanding. Continue statin, BB, PANCHO-i. Echo shows preserved EF 55-60%, mid diastolic dysfunction, moderately dilated left atrium, mild MR. Right and left femoral access sites healing well. No bleeding, hematoma or ecchymosis noted. Pt being discharged home today in stable condition. Follow-up in 1 week as outpt. (2) Bradycardia Priority: Secondary Status: Resolved Comments: Now resolved s/p revascularization. 12 hour tele AVG HR 68, no significant pauses or arrhythmias. Tolerating low dose BB. (3) Hypotension Priority: Secondary Status: Resolved Comments: Resolved. BP tolerating low dose BB and PANCHO-i. Qualifiers: Hypotension type: unspecified hypotension type Qualified Code(s): I95.9 - Hypotension, unspecified - Discharge Medications Prescriptions: Aspirin 81 mg PO DAILY #30 tab.chew Atorvastatin [Lipitor] 40 mg PO HS #30 tablet Clopidogrel [Plavix] 75 mg PO DAILY #30 tablet Lisinopril [Zestril] 2.5 mg PO DAILY #30 tablet Metoprolol [Lopressor] 12.5 mg PO BID #30 tablet Home Medications: Levothyroxine [Synthroid] 75 mcg PO DAILY 11/17/16 [History] Aspirin 81 mg PO DAILY #30 tab.chew 11/18/16 [Rx] Atorvastatin [Lipitor] 40 mg PO HS #30 tablet 11/18/16 [Rx] Clopidogrel [Plavix] 75 mg PO DAILY #30 tablet 11/18/16 [Rx] Lisinopril [Zestril] 2.5 mg PO DAILY #30 tablet 11/18/16 [Rx] Metoprolol [Lopressor] 12.5 mg PO BID #30 tablet 11/18/16 [Rx] Nitroglycerin 0.4 mg SL AD PRN #30 tab.subl 11/18/16 [Rx] Allergies/Adverse Reactions: Allergies meperidine [From Demerol] Adverse Reaction (Verified 11/17/16 12:52) Vomiting Procedures/tests Complete & Pending: Procedures Performed prior 72 hours Category Date Time Status CL Cardiac Catheterization [CL] Routine Narrow Gauge Operator 11/17/16 09:39 Completed ECG 12 lead ECG [ECG] Routine Y 11/16/16 23:21 Completed ECG 12 lead ECG [ECG] Routine Y 11/18/16 07:00 Stop Req ECG 12 lead ECG [ECG] Stat Y 11/17/16 00:04 Completed EV echocardiogram Routine Y 11/17/16 00:04 Completed Date of admission: 11/16/16 23:32 Primary care physician: PCP NO Consults: 11/17/16 00:04 Consult to Cardiac Rehabilitation-Phase1 [CONS] Routine Comment: Reason for Consult: AMI Call Completed: Yes Consult to Nurse Navigator [CONS] Routine Comment: Discharging clinician: Donte Koehler Anticipated date of discharge: 11/18/16 - Patient Status Disposition: Home, Self-Care Condition: Fair Functional capacity at discharge: independent ambulation Overall status at discharge: patient is progressing back to baseline - Discharge Instructions Follow Up With: NO,PCP [Primary Care Provider] - Additional Instructions: RISK FACTORS: STOP SMOKING: If you smoke, STOP. Smoking or tobacco use significantly increases your risk of heart disease because nicotine causes the arteries to narrow or constrict. It also causes fats to stick to the artery. Your chances of having a heart attack are greatly increased if you continue to smoke. For more information, call the education line for smoking cessation 9-149-PGDKFCA EAT A LOW FAT/CHOLESTEROL/SODIUM DIET: This diet may help reduce your chances of having a heart attack. LIFTING: Avoid lifting anything more than 10 pounds for 5-7 days Prior to straining, laughing, sneezing and/or coughing, apply manual pressure directly over insertion site. ACTIVITY: You may walk or climb stairs as tolerated You can resume sexual activity as tolerated In general, you are encouraged to engage in a minimum of 30 minutes or more of moderate intensity physical activity, such as brisk walking, daily or at least 3 -4 times weekly BATHING Do not submerge the site into water (bath tub, hot tub, swimming pool) for 1 week. This can be a source for infection into the blood stream. You may shower after 24 hours SITE CARE: After 24 hours, you may remove the dressing and leave the site open to air. Keep the site clean and dry. Clean gently and pat dry. You can expect bruising and tenderness that gradually resolve within a week or two. Return to work as instructed per your physician Resume driving as instructed per physician Keep all scheduled follow up appointments Resume medications as instructed IMPORTANT: If prescribed a Platelet Aggregation Inhibitor such as, Plavix, Brilinta or Effient: Duration of therapy is minimum one year These medications are often used in combination with Aspirin in prevention of future heart attacks Never discontinue unless consult with your Postal Clerk STROKE (CVA) Risk factors for a stroke are: Age, cigarette smoking, diabetes, excessive alcohol consumption, family history, high blood pressure, overweight, physical inactivity, prior stroke, heart attack, diagnosis of carotid artery stenosis or other artery disease. Warning signs: Sudden numbness or weakness of the face, arm or leg; especially on one side of the body, sudden confusion, trouble speaking or understanding, sudden trouble seeing in one or both eyes, sudden trouble walking, dizziness, loss of balance or coordination, sudden severe headache with no cause. Call 911 or go to the Emergency Room. CONGESTIVE HEART FAILURE: If you have been diagnosed with Congestive Heart Failure (CHF) and your symptoms return, make an appointment with your physician Weigh yourself daily. Notify your physician if you have a weight gain of two or more pounds in one day or five or more pounds in one week. If you experience any difficulty breathing, please call 911 BLEEDING: Although the risk of bleeding is minimal, it can happen. If you have any bleeding from the site, apply firm pressure above the puncture site for 10-15 minutes. If the bleeding does not stop, continue manual pressure and call 911 Contact your physician if: You develop a fever greater than 101 degrees Fahrenheit Your site becomes reddened or has any drainage You have an increase in pain or burning at the site or if a large knot forms at the site. If you experience chest pain, shortness of breath, dizziness, or extreme tiredness, stop the activity and rest. Please notify your physicians office if you experience any of these symptoms and they are not relieved by rest please call 911! - Diet and Activity Activity: increase activity as tolerated Diet: low fat, low cholesterol - Hospital Course Hospital course: Ms. Westbrook is a 76 year old female with PMH of hypothyroidism that presented as inferior STEMI 11/16/16, troponin 0.19. Emergent LHC on 11/16 showed severe 1 vessel CAD, EF 50%. Pt had successful PTCA/LENIN to proximal RCA. 11/17 she had LHC for staged PCI of mid circ--successful PTCA/LENIN. Pt denies any chest pain or dyspnea overnight. Labs and vitals stable. Recommend DAPT (ASA and Plavix) uninterrupted x 1 year. Pt verbalizes understanding. Continue statin, BB, PANCHO- i. Echo shows preserved EF 55-60%, mid diastolic dysfunction, moderately dilated left atrium, mild MR. Right and left femoral access sites healing well. No bleeding, hematoma or ecchymosis noted. Pt being discharged home today in stable condition. Follow-up in 1 week as outpt. - Time Spent with Patient Total time spent providing and/or coordinating discharge services: 30 minutes Physical Examination Vital Signs, Last 4 Hours Temp Pulse Resp BP Pulse Ox 11/18/16 08:07 75 100 11/18/16 07:34 98.2 F 62 16 118/58 96 Vital Signs Temp Pulse Resp BP Pulse Ox 11/18/16 08:07 75 100 11/18/16 07:34 98.2 F 62 16 118/58 96 11/18/16 03:00 98.4 F 67 16 119/61 96 11/18/16 02:00 62 169 105/72 98 11/18/16 00:00 60 16 98/44 97 11/17/16 23:52 61 11/17/16 23:36 98.0 F 11/17/16 22:00 61 16 114/54 95 11/17/16 20:19 67 11/17/16 20:00 59 16 107/48 96 11/17/16 19:00 98.1 F 11/17/16 18:00 66 14 114/79 95 11/17/16 17:00 64 14 135/61 95 11/17/16 16:00 64 14 130/68 95 11/17/16 15:55 98.2 F 11/17/16 15:00 60 14 131/54 95 11/17/16 14:00 58 14 119/72 95 11/17/16 13:00 59 13 126/72 95 11/17/16 12:35 52 13 125/65 95 11/17/16 12:05 56 13 125/61 95 11/17/16 11:50 56 13 125/65 95 11/17/16 11:29 57 11/17/16 11:26 57 13 131/64 95 Intake and Output 11/17/16 11/18/16 11/18/16 23:59 07:59 15:59 Intake Total 1000 / 1000 200 / 200 120 / 120 Output Total 350 / 350 Balance 650 / 650 200 / 200 120 / 120 Intake: IV Fluids 1000 / 1000 0.9 % Sodium Chloride 1, 1000 / 1000 000 ML @ 50 mls/hr IVC . Q20H ALEK Rx#:[id number] Oral 200 / 200 120 / 120 Output: Catheter 350 / 350 Other: Meal Breakfast Percent of Meal Consumed 100% Weight 60.4 kg Patient Weight 11/18/16 23:59 Weight 60.4 kg General: Conversant, No Apparent Distress HEENT: Atraumatic, Normocephaly, Mucus Membranes Moist Neck: No JVD, Normal carotid pulses Cardiac: Reg Rate and Rhythm, Normal S1 and S2, No Murmur Lungs: Normal Breath Sounds, No Wheeze, Rales, Rhonchi Neuro: Alert and responsive, No focal deficits noted Abdomen: Soft, Non-Tender Skin: Other (right and left femoral access sites healing well. No bleeding, hematoma or ecchymosis noted.) Musculoskeletal: No Chest Wall Tenderness Extremities: No Clubbing, No Cyanosis, No Edema, Normal Pulses - VTE Reasons for not Prescribing Prophylaxis: Not indicated-Anticoagulated or INR therapeutic
[2016-11-18] MEDS ORDERED: FLU VACC QS2016-17 36MOS UP/PF 0.5 ML SYRINGE IM ONE (10:35)
--- NOTE | 2016-11-19 07:49 | Invasive Diagnostic Lab Proc ---
Name: Niecy Westbrook Date of Study: 11/16/2016 Date: 1940 Ht: 66.1in Medical Record#: [id number] Age: 75 Wt: 169.76lb Gender: Female BSA: 1.87 Order #: [id number] BMI: 27.28 Physicians Procedure Physician: Magdaleno Manuel MD Referring MD: Referring MD: Staff Name Position Time In Guerline Dominguez RN Monitor 11:41 PM Mag Mireles RN Accountant Assistant 11:42 PM Indications Indication STEMI Procedures Performed Procedure PRQ CARD REVASC PA 1 VSL L HRT ARTERY/VENTRICLE ANGIO Pre-Procedure Checklist Informed consent is complete signed and on chart. H\\T\\P is on chart. ID band is on and ID verified with patient. Patient NPO for procedure The procedure was described for the patient and questions were answered. Blood Pressure: 99/53 ECG is on chart. Rhythm: Sinus Bradycardia Plan of Care Patient will tolerate the procedure without complications. Adequate level of comfort will be maintained. Hemodynamics will remain stable Patient will recover from procedure without complications. Respiratory function will be maintained. Cardiac rhythm will remain stable. Patient temperature will be maintained. Patient and/or family have verbalized understanding of the procedure. Patient Education Chief Complaint/Reason for Test: Cardiac Cath Developmental Category: Geriatric (65+ years) Developmentally Appropriate for Age: Yes Learning Barriers: None Education Needs: Procedure Education Method: Verbal Information Taught: Cardiac Cath Educational Evaluation: Able to repeat information Intravenous Access Time IV Size Location DC'd Fluid/Drip Rate Units RN 12:10 AM 18g 1 1/4" Patent On Arrival Left hand 0.9NaCl 25 ml/hr Guerline Dominguez RN 12:11 AM 18g 1 1/4" Patent On Arrival Rt Antecubital Allergies meperidine Vital Signs Time BP (mmHg) HR (bpm) O2 Sat. RR (bpm) LOC 11:40 PM 99 / 53 60 85 % 17 11:45 PM 133 / 69 79 96 % 19 11:50 PM 136 / 74 88 85 % 13 11:55 PM 128 / 72 88 83 % 8 12:00 AM 124 / 84 88 100 % 25 12:05 AM 134 / 83 85 100 % 21 12:10 AM 129 / 85 85 98 % 20 Procedural Medications Time Medication Dose Units Method Given By 11:43 PM Atropine 0.5 amp Intravenous Mag Mireles RN 11:43 PM Zofran 4 mg Intravenous Guerline Dominguez RN 11:48 PM Oxygen 15 L/min 100% non rebreather mask Mag Mireles RN 11:54 PM Lasix 40 mg Intravenous Mag Mireles RN 12:13 AM Oxygen 6 L/min nasal cannula Mag Mireles RN 11:41 PM Lidocaine 2% 20 ml Subcutaneous Magdaleno Manuel MD ASA Classification: CLASS III- Severe systemic disease (i.e. prior AMI, diabetes with vascular complications, morbid obesity) Pearl Score Preprocedure Postprocedure Activity 2- Moves 4 extremities sustained head lift Activity 2- Moves 4 extremities sustained head lift Circulation 2- SBP +/= 20 points of pre-anesthetic level Circulation 2- SBP +/= 20 points of pre-anesthetic level Consciousness 2- Awake and alert oriented x 3 Consciousness 2- Awake and alert oriented x 3 O2 Saturation 2- Able to maintain O2 satruation of 92% on room air O2 Saturation 2- Able to maintain O2 satruation of 92% on room air Respiratory 2- Able to deep breathe and cough well Respiratory 2- Able to deep breathe and cough well Total Score 10 Total Score 10 Contrast Agent: Isovue Diagnostic Contrast: 146 ml Total Contrast: 146 ml Fluoro Dose: 467 mGy Procedure Log Time Note Enter By 11:31 PM Physician arrived 23:31 ejohnson 11:31 PM Meet and greet completed ejohnson 11:31 PM Sign in performed according to hospital policy. ejohnson 11:31 PM Procedure start 23:31 ejohnson 11:31 PM Pt arrived to labor economics professor 2 at 23:31 ejohnson 11:39 PM Hair removed from procedure site in procedure lab using clippers. Bilateral groin prepped with Chloraprep by Guerline Dominguez RN then patient draped. Skin intact. ejohnson 11:39 PM Vitals capture started with the following parameters, Patient=Adult, Interval=5 min, Initial Zficjemz=208 mmHg, Deflation Rate=5 mmHg, Cuff placed on Left Leg 11:40 PM HR=60 bpm, NIBP=99/53 mmhg, SpO2=85 %, Resp=17 B/min 11:41 PM Time: 23:41 20 ml Lidocaine 2% to right groin Subcutaneous Given by Magdaleno Manuel MD ejohnson 11:42 PM Guerline Dominguez RN Position: Monitor Time in: 23: ejohnson 11:42 PM Mag Mireles RN Position: Accountant Assistant Time in: 23:42 ejohnson 11:42 PM Patient charges- Angio tray pack, Navilyst 3mm J, Pulse Oximetry and ACIST tubing and transducer ejohnson 11:42 PM Case Delayed No ejohnson 11:43 PM Time: 23:43 Atropine 0.5 amp Intravenous Given by Mag Mireles RN ejohnson 11:43 PM Time: 23:43 Zofran 4 mg Intravenous Given by Guerline Dominguez RN ejohnson 11:43 PM Clinical Presentation: STEMI or equivalent ejohnson 11:43 PM Time out performed according to hospital policy ejohnson 11:44 PM Access obtained by percutaneous puncture. 6Fr 11cm Terumo [place] sheath placed in right Femoral artery. [id number] ejohnson 11:44 PM Access obtained by percutaneous puncture. 6Fr 11cm Terumo [place] sheath placed in right Femoral vein. [id number] ejohnson 11:44 PM 5Fr FL 4 catheter inserted over the wire DN ejohnson 11:45 PM LCA angiography performed in multiple views. ejohnson 11:45 PM Catheter removed ejohnson 11:45 PM HR=79 bpm, JVXC=560/69 mmhg, SpO2=96.0 %, Resp=19 B/min, Comment=sr 11:46 PM PCI Status Emergency ejohnson 11:46 PM PCI Indication: Immediate PCI for STEMI ejohnson 11:46 [address] guide catheter was used to cannulate the PCI vessel successfully. reused? No ejohnson 11:47 PM RCA angiography performed in multiple views. ejohnson 11:47 PM .014 Prowater 180cm guide wire across target lesion- successful. reused? No ejohnson 11:47 PM Inflation device was opened. ejohnson 11:47 PM Recorded Pressure: Ao, HR=83, Condition=Condition 1 (Aorta) Ao 139/82/108 11:48 PM 2.0 mm x 8 mm Mini Trekl balloon across target lesion- successful. reused? No ejohnson 11:49 PM Time: 23:48 Oxygen on at 15 L/min per 100% non rebreather mask by Mag Mireles RN ejoknson 11:49 PM Balloon inflated @ 8 roque for 12 seconds ejohnson 11:50 PM HR=88 bpm, UZPT=857/74 mmhg, SpO2=85 %, Resp=13 B/min 11:52 PM Balloon catheter removed intact. ejohnson 11:53 PM 3.0mm x 12mm Synergy drug-eluting stent across target lesion- successful Lot #[id number] ejohnson 11:54 PM Stent deployed @ 18 roque for 8 seconds ejohnson 11:54 PM Stent delivery system removed intact. ejohnson 11:54 PM Time: 23:54 Lasix 40 mg Intravenous Given by Mag Mireles RN ejoknson 11:55 PM HR=88 bpm, BWLC=099/72 mmhg, SpO2=85 %, Resp=8 B/min 11:55 PM Pressure channel 1 zeroed. 11:55 PM Recorded Pressure: LV, HR=88, Condition=Condition 1 (Left Ventricle) LV 130/0/16 11:55 PM Recorded Pressure: LV, Ao, HR=88, Condition=Condition 1 (Left Ventricle) LV 112/41/46, (Aorta) Ao 113/39/80 11:57 PM 5Fr Pigtail catheter inserted over the wire [facility] ejohnson 11:57 PM Catheter selectively placed in left ventricle ejohnson 11:57 PM Bolus angiogram of left Ventricle complete: 10 ml/sec for a total of 30 mls ejohnson 11:57 PM Catheter removed ejohnson 11:57 PM Bolus angiogram of right Femoral complete: 4 ml/sec for a total of 7 mls ejohnson 12:00 AM HR=88 bpm, OFDV=755/84 mmhg, IcX0=826 %, Resp=25 B/min 12:00 AM Procedure completed at 00:00 ejohnson 12:01 AM Sign out completed: Radiation Dose 467 mGy Fluoro Time: 3.2 Isovue 370 - 200ml contrast 146 ml given by Magdaleno Manuel MD. Complications: NoneCardiac Rehab Consult needed: YesConfirmed administered medications: Yes ejohnson 12:01 AM Isovue 370 - 200ml,1 Bottle(s) used. ejohnson 12:02 AM Arterial sheath pulled, Perclose closure device used and was Successful S/N. ejohnson 12:02 AM Post ECG NSR ejohnson 12:03 AM Post Blood Pressure 124/84 ejohnson 12:03 AM 00:03 Post Pulses Bilateral DP \\T\\ PT Doppler ejohnson 12:03 AM Information taught Cardiac Cath, PCI, and Perlose ejohnson 12:03 AM Education needs Procedure, Plan of Care, and Responsibilities of Patient in Care ejohnson 12:03 AM Learning barriers :None ejohnson 12:03 AM Education Methods Verbal ejohnson 12:03 AM Education evaluation Able to repeat information ejohnson 12:04 AM Site status No bleeding/hematoma - Rt Groin as reported by Saida Arias RT at 00:03 ejohnson 12:04 AM Opsite applied ejohnson 12:04 AM venous Sheath left in place to be pulled on floor/holding area ejohnson 12:05 AM HR=85 bpm, IDOS=699/83 mmhg, OoM8=207 %, Resp=21 B/min 12:07 AM Plavix, Effient or Brilinta given No, given in the ED ejohnson 12:07 AM Delay to floor No ejohnson 12:07 AM Family placed in consult room. ejohnson 12:07 AM Complications: None ejohnson 12:07 AM Complications: None ejohnson 12:07 AM Fluoro Time: 3.2 ejohnson 12:07 AM Isovue 370 - 200ml contrast 146 ml given by Magdaleno Manuel MD. ejohnson 12:07 AM Radiation Dose 467 mGy ejohnson 12:10 AM HR=85 bpm, LBAP=369/85 mmhg, SpO2=98 %, Resp=20 B/min 12:13 AM Time: 00:13 Oxygen on at 6 L/min per nasal cannula by Mag Mireles RN ejohnson 12:15 AM Coyle catheter inserted using sterile technique. 500mls urine with insertion. 10mls water inserted into the balloon. ejohnson 12:18 AM Report given to Lisa JACOBS Pt taken to ICU Room #11. 00:18 ejohnson 12:22 AM ASA Class CLASS III- Severe systemic disease (i.e. prior AMI, diabetes with vascular complications, morbid obesity) ejohnson 12:24 AM Lesion found in Proximal RCA. Pre Stenosis: 99 Pre DOUGLAS Flow: ejohnson 12:24 AM Lesion found in Mid RCA. Pre Stenosis: 30 Pre DOUGLAS Flow: ejohnson 12:25 AM Lesion found in Distal RCA. Pre Stenosis: 30 Pre DOUGLAS Flow: ejohnson 12:25 AM Lesion found in Proximal LAD. Pre Stenosis: 40 Pre DOUGLAS Flow: ejohnson 12:25 AM Lesion found in Mid LAD. Pre Stenosis: 20 Pre DOUGLAS Flow: ejohnson 12:25 AM Lesion found in 1st Diagonal. Pre Stenosis: 60 Pre DOUGLAS Flow: ejohnson 12:25 AM Lesion found in Mid Circumflex. Pre Stenosis: 95 Pre DOUGLAS Flow: ejohnson 12:26 AM Proximal Left Anterior Descending Coronary Artery with 20% stenosis. If graft is supplying this territory, % stenosis. ejohnson 12:26 AM Mid/Distal Left Anterior Descending Coronary Artery and diagonal branches with 60% stenosis. If graft is supplying this area, % stenosis ejohnson 12:26 AM Circumflex, Obtuse Marginal, Left Posterior Descending, and Left Posterolateral Coronary Arteries with 95 % stenosis. If graft is supplying this area, % stenosis ejohnson 12:26 AM Right Coronary, Right Posterior Descending Arteries with Right Posterolateral and Acute Marginal branches with 99 % stenosis. If graft is supplying this area, % stenosis ejohnson 12:45 AM Coronary Dominance: right ejohnson Equipment Used Size Length Diameter Item Category Angio tray pack Other Terumo [place] sheath [facility] Diagnostic catheter Runway Guide catheter Glidewire wire Inflation kit Other Mini-Trek Rx Balloon Xience Jackie Rx Drug Eluting Stent Isovue 370- 200ml Contrast Perclose ProGlide Suture Complications Complication None Hemodynamics Pressures Site Systolic/A Wave Diastolic/V Wave Mean AO 139 82 108 LV 130 0 16 LV 112 41 46 AO 113 39 80 Post Procedure Information Blood Pressure: 124/84 mmHg Rhythm: NSR Post procedural instructions were given Closure Device Time Device Success/Fail 11/17/2016 12:02:00 AM Perclose ProGlide Successful 11/17/2016 12:02:00 AM venous sheath in place Site Checks Time Location Status Staff Sheath In? Note 12:03 AM Rt Groin No bleeding/hematoma Saida Arias RT Pulses Time Site Pre-Procedure Post-Procedure Note 12:03:00 AM Bilateral DP \\T\\ PT 1+ 11/17/2016 11:35:00 AM Bilateral DP \\T\\ PT 1+ Updated by Guerline Hillman RN on 11/19/2016 7:41:43 AM electronically signed on 11/19/2016 7:42:08 AM with status of Final
== END 2016-11-18 12:46 | disposition home or self-care (01) | DRG 247 ==
LOC: EMEROO 22:48 → ICNU 23:30 → 2NNU 11-18 02:34
PROVIDERS: ADMIT Internal Medicine Interventional Cardiology; ATTEND Internal Medicine Cardiovascular Disease

== ENCOUNTER 2021-09-18 10:03 | Inpatient (IN) ==
[2021-09-18] MEDS ORDERED: *HR* Propofol 200 MG/20 ML VIAL IVP ONE ×2 (10:44→10:50)
[2021-09-18] MEDS ORDERED: Lidocaine -MPF 2% 5 ML VIAL ONE (10:57)
[2021-09-18] MEDS ORDERED: Ringers Solution, Lactated 1,000 ML IVC SCH (11:00)
[2021-09-18] MEDS ORDERED: *HR* OxyCODONE Immed Rel 5 MG TABLET PO ONE (12:21)
[2021-09-18] MEDS ORDERED: 0.9 % Sodium Chloride 1,000 ML IVC SCH (13:46)
[2021-09-18] MEDS ORDERED: Naloxone 0.4 MG/ML INJ IVP PRN (13:46)
[2021-09-18] MEDS ORDERED: Ondansetron 4 MG/2 ML VIAL IVP PRN (13:46)
[2021-09-18] MEDS ORDERED: *HR* Metoprolol 5 MG/5 ML VIAL IVP PRN (13:46)
[2021-09-18] MEDS ORDERED: Acetaminophen 325 MG TABLET PO PRN (13:54)
[2021-09-18] MEDS: *HR* Heparin 5,000 UNIT/ML VIAL SQ SCH (16:50)
[2021-09-18] MEDS: *HR* OxyCODONE Immed Rel 5 MG TABLET PO PRN (23:18)
[2021-09-19 02:44] LABS: Basophils % 0.4 %; Eosinophils # 0.3 K/mcL (0.0-0.6); Eosinophils % 3.9 %; Hematocrit 34.8 % (35.3-44.9); Immature Granulocytes % 0.4 % (0-4); Lymphocytes # 1.1 K/mcL (0.6-4.6); Lymphocytes % 14.9 %; Mean Corpuscular HGB Conc 31.6 g/dL (31.6-35.5); Mean Corpuscular Hemoglobin 28.5 pg (28.0-33.3); Mean Corpuscular Volume 90.2 fL (83.0-100.0); Mean Platelet Volume 8.9 fL (9.4-12.4); Monocytes # 0.9 K/mcL (0.0-1.3); Monocytes % 11.2 %; Neutrophils # 5.3 K/mcL (1.6-8.9); Platelet Count 318 K/mcL (140-400); Red Blood Count 3.86 M/mcL (3.82-4.97); Red Cell Distribution Width 15.2 % (11.5-14.5); Segmented Neutrophils % 69.2 %; White Blood Count 7.7 K/mcL (4.3-11.1)
[2021-09-19 02:59] LABS: Alanine Aminotransferase 24 Units/L (7-52); Albumin 3.3 g/dL (3.5-5.7); Albumin/Globulin Ratio 1.2 (1.1-2.2); Alkaline Phosphatase 189 Units/L (34-104); Aspartate Amino Transferase 26 Units/L (13-39); BUN/Creatinine Ratio 13 (6-26); Bilirubin,Direct 0.1 mg/dL (0.0-0.2); Bilirubin,Indirect 0.5 mg/dL (0.0-1.0); Bilirubin,Total 0.6 mg/dL (0.3-1.0); Blood Urea Nitrogen 9 mg/dL (8-23); Calcium 8.5 mg/dL (8.6-10.3); Carbon Dioxide 26 mEq/L (23-29); Chloride 106 mEq/L (98-107); Globulin 2.8 g/dL (2.4-3.5); Glucose 84 mg/dL (70-105); Osmolality,Calculated 284 (280-300); Potassium 3.5 mEq/L (3.5-5.1); Sodium 138 mEq/L (136-145); Total Protein 6.1 g/dL (6.4-8.9); eGFR For African Americans > 60 (> 60); eGFR For Non-African Americans > 60 (> 60)
[2021-09-19] MEDS: *HR* Heparin 5,000 UNIT/ML VIAL SQ SCH ×2 (05:40→18:08)
[2021-09-19] MEDS: *HR* OxyCODONE Immed Rel 5 MG TABLET PO PRN ×2 (05:41→22:41)
[2021-09-19] MEDS: 0.9 % Sodium Chloride 1,000 ML IVC SCH ×2 (08:50→21:18)
[2021-09-19] MEDS ORDERED: lisinopriL 5 MG TABLET PO SCH (09:00)
[2021-09-19] MEDS ORDERED: *HR* FentaNYL (PF) 100 MCG/2 ML VIAL ONE (15:33)
[2021-09-19] MEDS ORDERED: *HR* Propofol 200 MG/20 ML VIAL IVP ONE (15:34)
[2021-09-19] MEDS ORDERED: Lidocaine -MPF 2% 5 ML VIAL ONE (15:34)
[2021-09-19] MEDS ORDERED: *HR* Rocuronium Bromide 50 MG/5 ML VIAL ONE ×2 (15:35→17:59)
[2021-09-19] MEDS ORDERED: CeFAZolin 2,000 MG/120 ML BAG IVPB ONE (17:24)
[2021-09-19] MEDS ORDERED: cefOXitin 2,000 MG in 0.9 % Sodium Chloride Mini Bag 100 ML IVPB ONE ×2 (17:41→23:00)
[2021-09-19] MEDS ORDERED: CefOXitin 2,000 MG VIAL ONE (17:43)
[2021-09-19] MEDS ORDERED: Ondansetron 4 MG/2 ML VIAL IVP PRN (18:42)
[2021-09-19] MEDS ORDERED: *HR* HYDROMORPHONE 2 MG/ML VIAL ONE (18:57)
[2021-09-19] MEDS ORDERED: Sugammadex Sodium 200 MG/2 ML VIAL IV ONE (19:20)
[2021-09-19] MEDS ORDERED: Ringers Solution, Lactated 1,000 ML ONE (19:36)
[2021-09-19] MEDS: *HR* HYDROmorphone PF 0.5 MG/0.5 ML SYRINGE IVP PRN ×3 (20:16→20:34)
[2021-09-20] MEDS: *HR* OxyCODONE Immed Rel 5 MG TABLET PO PRN ×3 (02:56→12:03)
[2021-09-20] MEDS ORDERED: Ondansetron 4 MG/2 ML VIAL IVP PRN (04:21)
[2021-09-20] MEDS ORDERED: *HR* Metoprolol 5 MG/5 ML VIAL IVP PRN (04:21)
[2021-09-20] MEDS ORDERED: *HR* FentaNYL (PF) 100 MCG/2 ML VIAL IVP PRN (04:21)
[2021-09-20] MEDS ORDERED: Naloxone 0.4 MG/ML INJ IVP PRN (04:21)
[2021-09-20] MEDS: Piperacillin/Tazobactam 3.375 GM in 0.9 % Sodium Chloride Mini Bag 100 ML IVPB SCH ×3 (04:41→21:11)
[2021-09-20] MEDS: Acetaminophen IV 500 MG/50 ML BAG IVPB SCH ×3 (05:22→21:10)
[2021-09-20] MEDS: *HR* Heparin 5,000 UNIT/ML VIAL SQ SCH ×2 (05:23→17:18)
[2021-09-20] MEDS: 0.9 % Sodium Chloride 1,000 ML IVC SCH ×2 (07:34→12:16)
[2021-09-20] MEDS: lisinopriL 5 MG TABLET PO SCH (07:38)
[2021-09-20 08:49] LABS: Basophils % 0.1 %; Hematocrit 36.9 % (35.3-44.9); Hemoglobin 11.5 g/dL (11.5-15.4); Immature Granulocytes % 0.5 % (0-4); Lymphocytes # 0.5 K/mcL (0.6-4.6); Mean Corpuscular HGB Conc 31.2 g/dL (31.6-35.5); Mean Corpuscular Hemoglobin 28.5 pg (28.0-33.3); Mean Corpuscular Volume 91.6 fL (83.0-100.0); Monocytes # 1.2 K/mcL (0.0-1.3); Platelet Count 319 K/mcL (140-400); Red Blood Count 4.03 M/mcL (3.82-4.97); Red Cell Distribution Width 14.8 % (11.5-14.5); Segmented Neutrophils % 88.4 %
[2021-09-20 08:50] LABS: Neutrophils # 13.4 K/mcL (1.6-8.9); White Blood Count 15.2 K/mcL (4.3-11.1)
[2021-09-20 09:10] LABS: BUN/Creatinine Ratio 20 (6-26); Blood Urea Nitrogen 15 mg/dL (8-23); Calcium 8.4 mg/dL (8.6-10.3); Carbon Dioxide 22 mEq/L (23-29); Chloride 104 mEq/L (98-107); Glucose 93 mg/dL (70-105); Magnesium 1.9 mg/dL (1.6-2.6); Osmolality,Calculated 285 (280-300); Phosphorous 5.4 mg/dL (2.7-4.5); Potassium 4.1 mEq/L (3.5-5.1); Sodium 137 mEq/L (136-145); eGFR For African Americans > 60 (> 60); eGFR For Non-African Americans > 60 (> 60)
[2021-09-20] MEDS: Ketorolac 30 MG/ML VIAL IVP SCH ×3 (12:03→23:59)
[2021-09-20] MEDS ORDERED: 0.9 % Sodium Chloride 1,000 ML IVC SCH (22:00)
[2021-09-21 04:55] LABS: Basophils % 0.5 %; Eosinophils % 0.5 %; Immature Granulocytes % 0.4 % (0-4); Lymphocytes % 11.9 %; Mean Corpuscular HGB Conc 30.6 g/dL (31.6-35.5); Mean Corpuscular Hemoglobin 27.8 pg (28.0-33.3); Mean Corpuscular Volume 90.7 fL (83.0-100.0); Mean Platelet Volume 9.4 fL (9.4-12.4); Monocytes # 0.9 K/mcL (0.0-1.3); Monocytes % 10.4 %; Neutrophils # 6.4 K/mcL (1.6-8.9); Platelet Count 291 K/mcL (140-400); Red Blood Count 3.53 M/mcL (3.82-4.97); Red Cell Distribution Width 15.5 % (11.5-14.5); Segmented Neutrophils % 76.3 %; White Blood Count 8.4 K/mcL (4.3-11.1)
[2021-09-21 04:56] LABS: BUN/Creatinine Ratio 22 (6-26); Blood Urea Nitrogen 22 mg/dL (8-23); Calcium 8.1 mg/dL (8.6-10.3); Carbon Dioxide 22 mEq/L (23-29); Chloride 105 mEq/L (98-107); Glucose 107 mg/dL (70-105); Magnesium 1.8 mg/dL (1.6-2.6); Osmolality,Calculated 284 (280-300); Phosphorous 3.2 mg/dL (2.7-4.5); Potassium 3.7 mEq/L (3.5-5.1); Sodium 135 mEq/L (136-145); eGFR For African Americans > 60 (> 60); eGFR For Non-African Americans 55 (> 60)
[2021-09-21 04:57] LABS: Hemoglobin 9.8 g/dL (11.5-15.4)
[2021-09-21] MEDS: *HR* Heparin 5,000 UNIT/ML VIAL SQ SCH ×2 (07:36→17:24)
[2021-09-21] MEDS: Ketorolac 30 MG/ML VIAL IVP SCH ×3 (07:36→17:24)
[2021-09-21 07:45] LABS: % Iron Saturation 11 % (15-50); Iron 21 mcg/dL (50-170); Transferrin 142 mg/dL (203-362)
[2021-09-21] MEDS: Acetaminophen IV 500 MG/50 ML BAG IVPB SCH (07:45)
[2021-09-21] MEDS: lisinopriL 5 MG TABLET PO SCH (08:07)
[2021-09-21] MEDS: Aspirin 81 MG TAB.CHEW PO SCH (08:07)
[2021-09-21] MEDS: amLODIPine 5 MG TABLET PO SCH (08:07)
[2021-09-21] MEDS: Iron Sucrose Complex 250 MG in 0.9 % Sodium Chloride 250 ML IVPB SCH (10:48)
[2021-09-21] MEDS: Metoclopramide 10 MG/2 ML VIAL IVP SCH (17:25)
[2021-09-21] MEDS ORDERED: *HR* HYDROcodone/Acet 5/325 mg TABLET PO PRN (17:27)
[2021-09-22] MEDS: Metoclopramide 10 MG/2 ML VIAL IVP SCH ×4 (00:40→17:03)
[2021-09-22] MEDS: Ketorolac 30 MG/ML VIAL IVP SCH ×3 (00:40→12:15)
[2021-09-22] MEDS: *HR* Heparin 5,000 UNIT/ML VIAL SQ SCH ×2 (05:56→17:02)
[2021-09-22] MEDS: amLODIPine 5 MG TABLET PO SCH (09:57)
[2021-09-22] MEDS: Aspirin 81 MG TAB.CHEW PO SCH (09:57)
[2021-09-22] MEDS: lisinopriL 5 MG TABLET PO SCH (09:58)
[2021-09-22] MEDS: Iron Sucrose Complex 250 MG in 0.9 % Sodium Chloride 250 ML IVPB SCH (09:58)
[2021-09-23] MEDS: Metoclopramide 10 MG/2 ML VIAL IVP SCH ×2 (00:15→06:20)
[2021-09-23 04:56] VITALS: TEMP 98.5
[2021-09-23] MEDS: *HR* Heparin 5,000 UNIT/ML VIAL SQ SCH (06:20)
[2021-09-23] MEDS: Aspirin 81 MG TAB.CHEW PO SCH (08:43)
[2021-09-23] MEDS: Iron Sucrose Complex 250 MG in 0.9 % Sodium Chloride 250 ML IVPB SCH (08:43)
[2021-09-23] MEDS: amLODIPine 5 MG TABLET PO SCH (08:43)
[2021-09-23] MEDS: lisinopriL 5 MG TABLET PO SCH (08:43)
[2021-09-23 09:20] VITALS: BP 134/68; PULSE 75; O2SAT 94
== END 2021-09-23 15:00 | disposition home or self-care (01) | DRG 330 ==
LOC: ENDPAV 10:03 → 3ANU 13:30
PROVIDERS: ADMIT Surgery; ATTEND Surgery
PROC: ENDOCBX (2021-09-18 12:00)

== ENCOUNTER 2022-05-04 09:38 | Inpatient (IN) ==
[2022-05-04] MEDS ORDERED: *HR* Etomidate 20 MG/10 ML AMPUL IVP ONE ×2 (09:58→10:08)
[2022-05-04] MEDS ORDERED: Iopamidol - 370 500 ML MLS IVP ONE (10:11)
[2022-05-04 10:34] LABS: Hematocrit 42.2 % (35.3-44.9); Hemoglobin 14.1 g/dL (11.5-15.4); Mean Corpuscular HGB Conc 33.4 g/dL (31.6-35.5); Mean Corpuscular Hemoglobin 32.2 pg (28.0-33.3); Mean Corpuscular Volume 96.3 fL (83.0-100.0); Mean Platelet Volume 9.5 fL (9.4-12.4); Platelet Count 202 K/mcL (140-400); Red Blood Count 4.38 M/mcL (3.82-4.97); Red Cell Distribution Width 12.8 % (11.5-14.5)
[2022-05-04 10:42] LABS: White Blood Count 4.8 K/mcL (4.3-11.1)
[2022-05-04 10:47] LABS: INR 1.1; Prothrombin Time 12.8 Seconds (9.4-12.1)
[2022-05-04 10:50] LABS: Activated Partial Thrombo Time 29.5 Seconds (26.0-36.0)
[2022-05-04 10:59] LABS: BUN/Creatinine Ratio 51 (6-26); Blood Urea Nitrogen 40 mg/dL (8-23); Calcium 9.1 mg/dL (8.6-10.3); Carbon Dioxide 24 mEq/L (23-29); Chloride 97 mEq/L (98-107); Glucose 94 mg/dL (70-105); Magnesium 1.6 mg/dL (1.6-2.6); Osmolality,Calculated 282 (280-300); Potassium 3.8 mEq/L (3.5-5.1); Sodium 131 mEq/L (136-145); Troponin I < 0.03 ng/mL (< 0.04); eGFR For African Americans > 60 (> 60); eGFR For Non-African Americans > 60 (> 60)
[2022-05-04 11:09] LABS: Lymphocytes # 0.9 K/mcL (0.6-4.6); Monocytes # 1.3 K/mcL (0.0-1.3); Neutrophils # 2.7 K/mcL (1.6-8.9); Platelet Estimate Normal (Normal)
[2022-05-04 11:12] LABS: Thyroid Stimulating Hormone 9.792 mcIU/mL (0.340-5.600)
[2022-05-04] MEDS ORDERED: cefTRIAXone 1,000 MG in Water for inj. (sterile) 10 ML IVP ONE (13:43)
[2022-05-04] MEDS ORDERED: Azithromycin 500 MG in 0.9 % Sodium Chloride 250 ML IVPB ONE (13:43)
[2022-05-04] MEDS ORDERED: Acetaminophen 325 MG TABLET PO PRN (14:39)
[2022-05-04] MEDS ORDERED: Naloxone 0.4 MG/ML INJ IVP PRN (14:39)
[2022-05-04] MEDS ORDERED: Ipratropium Neb 0.5 MG NEBULIZER IH PRN (14:47)
[2022-05-04] MEDS: cefTRIAXone 1,000 MG in Water for inj. (sterile) 10 ML IVP SCH (16:33)
[2022-05-04] MEDS: 0.9 % Sodium Chloride 1,000 ML IVC SCH (16:33)
[2022-05-04] MEDS: *HR* OxyCODONE Immed Rel 5 MG TABLET PO PRN ×2 (16:44→23:38)
[2022-05-04 17:38] LABS: Influenza A PCR Negative (Negative); Influenza B PCR Negative (Negative); Resp. Syncytial Virus PCR Negative (Negative)
[2022-05-04 17:43] LABS: SARS-CoV-2 by PCR (In House) Negative (Negative)
[2022-05-04] MEDS: *HR* HYDROcodone/Acet 5/325 mg TABLET PO PRN (20:21)
[2022-05-04] MEDS: *HR* Heparin 5,000 UNIT/ML VIAL SQ SCH (20:21)
[2022-05-05 02:18] LABS: Hematocrit 37.7 % (35.3-44.9); Hemoglobin 12.7 g/dL (11.5-15.4); Mean Corpuscular HGB Conc 33.7 g/dL (31.6-35.5); Mean Corpuscular Hemoglobin 32.1 pg (28.0-33.3); Mean Corpuscular Volume 95.2 fL (83.0-100.0); Mean Platelet Volume 10.7 fL (9.4-12.4); Platelet Count 105 K/mcL (140-400); Red Blood Count 3.96 M/mcL (3.82-4.97); Red Cell Distribution Width 12.7 % (11.5-14.5); White Blood Count 4.3 K/mcL (4.3-11.1)
[2022-05-05 02:50] LABS: Eosinophils # 0.2 K/mcL (0.0-0.6); Lymphocytes # 0.7 K/mcL (0.6-4.6); Monocytes # 1.5 K/mcL (0.0-1.3)
[2022-05-05 03:10] LABS: BUN/Creatinine Ratio 53 (6-26); Blood Urea Nitrogen 34 mg/dL (8-23); Calcium 8.3 mg/dL (8.6-10.3); Carbon Dioxide 23 mEq/L (23-29); Chloride 101 mEq/L (98-107); Glucose 86 mg/dL (70-105); Magnesium 1.6 mg/dL (1.6-2.6); Osmolality,Calculated 281 (280-300); Potassium 3.9 mEq/L (3.5-5.1); Sodium 132 mEq/L (136-145); eGFR For African Americans > 60 (> 60); eGFR For Non-African Americans > 60 (> 60)
[2022-05-05] MEDS: *HR* HYDROcodone/Acet 5/325 mg TABLET PO PRN ×2 (03:12→20:02)
[2022-05-05] MEDS: 0.9 % Sodium Chloride 1,000 ML IVC SCH (05:44)
[2022-05-05] MEDS: *HR* Heparin 5,000 UNIT/ML VIAL SQ SCH (05:45)
[2022-05-05] MEDS: Azithromycin 250 MG TABLET PO SCH (07:44)
[2022-05-05] MEDS ORDERED: Perflutren Lipid Microsphere 1.3 ML in 0.9 % Sodium Chloride 8.7 ML IVP PRN (08:29)
[2022-05-05] MEDS ORDERED: Apixaban 5 MG TABLET PO SCH (09:00)
[2022-05-05] MEDS ORDERED: Aspirin 81 MG TAB.CHEW PO SCH (09:00)
[2022-05-05] MEDS: *HR* OxyCODONE Immed Rel 5 MG TABLET PO PRN ×2 (09:05→17:21)
[2022-05-05] MEDS ORDERED: Heparin 25,000UNIT/250ML 1/2NS 25,000 UNIT/250 ML IV.SOLN IVC SCH ×2 (12:45→21:00)
[2022-05-05 13:20] LABS: Hematocrit 36.8 % (35.3-44.9); Hemoglobin 12.2 g/dL (11.5-15.4); Mean Corpuscular HGB Conc 33.2 g/dL (31.6-35.5); Mean Corpuscular Hemoglobin 32.4 pg (28.0-33.3); Mean Corpuscular Volume 97.6 fL (83.0-100.0); Mean Platelet Volume 8.9 fL (9.4-12.4); Platelet Count 184 K/mcL (140-400); Red Blood Count 3.77 M/mcL (3.82-4.97); White Blood Count 5.8 K/mcL (4.3-11.1)
[2022-05-05 13:33] LABS: Heparin anti-factor XA UFH 0.85 IU/mL (0.30-0.70)
[2022-05-05 13:34] LABS: INR 1.5; Prothrombin Time 16.7 Seconds (9.4-12.1)
[2022-05-05] MEDS: cefTRIAXone 1,000 MG in Water for inj. (sterile) 10 ML IVP SCH (15:51)
[2022-05-05] MEDS ORDERED: *HR* Heparin 5,000 UNIT/ML VIAL IVP ONE (21:00)
[2022-05-05] MEDS ORDERED: *HR* Heparin 5,000 UNIT/ML VIAL IVP PRN ×2 (21:00)
[2022-05-06] MEDS: *HR* OxyCODONE Immed Rel 5 MG TABLET PO PRN ×2 (01:51→13:41)
[2022-05-06] MEDS: amLODIPine 5 MG TABLET PO SCH (09:50)
[2022-05-06] MEDS: Azithromycin 250 MG TABLET PO SCH (09:50)
[2022-05-06] MEDS: Apixaban 5 MG TABLET PO SCH ×2 (10:21→19:57)
[2022-05-06] MEDS: cefTRIAXone 1,000 MG in Water for inj. (sterile) 10 ML IVP SCH (15:03)
[2022-05-06] MEDS: *HR* HYDROcodone/Acet 5/325 mg TABLET PO PRN (20:00)
[2022-05-07] MEDS: *HR* HYDROcodone/Acet 5/325 mg TABLET PO PRN (05:45)
[2022-05-07 06:45] VITALS: BP 134/67; PULSE 82; TEMP 97.7
[2022-05-07] MEDS: Apixaban 5 MG TABLET PO SCH (09:04)
[2022-05-07] MEDS: amLODIPine 5 MG TABLET PO SCH (09:05)
[2022-05-07] MEDS: Azithromycin 250 MG TABLET PO SCH (09:11)
[2022-05-07 09:49] VITALS: O2SAT 93
== END 2022-05-07 11:07 | disposition home health service (06) | DRG 308 ==
LOC: EMEROOARM 09:38 → 3BNU 09:38 → SUATTDRO 14:12 → 3BNU 16:20
PROVIDERS: ADMIT Family Medicine; ATTEND Registered Nurse